=== PATIENT | female | born 1970 ===

== ENCOUNTER 2024-06-10 06:58 | Day surgery (SDC) | payer OTHER ==
[~2024-06-10 06:58] MED LIST: LEVOTHYROXINE25 MCG
[2024-06-10] MEDS ORDERED: MORPHINE SULFATE 4 MG/ML VIAL IV PRN (12:30)
[2024-06-10] MEDS ORDERED: PROMETHAZINE HCL 50 MG/ML AMPUL IM ONE (12:30)
[2024-06-10] MEDS ORDERED: POVIDONE-IODINE 118 ML BOTT TOP ONE (12:45)
== END 2024-06-10 15:35 | disposition home or self-care (01) ==
LOC: CIR.AMB 06:58
PROVIDERS: ATTEND Obstetrics & Gynecology
DX: N85.00 Endometrial hyperplasia, unspecified (principal)